=== PATIENT | female | born 1945 | race Caucasian/White ===

== ENCOUNTER 2018-04-05 13:21 | Outpatient (CLI) | payer MEDICARE, BC | END 2018-04-05 23:59 | disposition home or self-care (01) | LOC: WOU 13:21 | PROVIDERS: ATTEND Specialist | DX: I89.0 Lymphedema, not elsewhere classified (principal); I87.323 Chronic venous hypertension (idiopathic) with inflammation of bilateral lower extremity | CPT/HCPCS: 29580-50; A6402; G0463; Z7610 ==